=== PATIENT | female | born 1985 | race Caucasian/White ===

== ENCOUNTER → 2016-07-28 | Outpatient (CLI) | payer OTHER ==
[2016-07-28 18:27] LABS: ANION GAP 8 MEQ/L (8-16); BLOOD UREA NITROGEN 16 MG/DL (7-18); CALCIUM LEVEL 9.1 MG/DL (8.5-10.1); CARBON DIOXIDE LEVEL 28 MEQ/L (21-32); CHLORIDE LEVEL 104 MEQ/L (98-107); CREATININE FOR GFR 1.06 MG/DL (0.55-1.02); GLOMERULAR FILTRATION RATE > 60.0 (>60); GLUCOSE, FASTING 122 MG/DL (70-105); POTASSIUM SERUM 3.8 MEQ/L (3.5-5.1); SODIUM LEVEL 140 MEQ/L (136-145)
== END ==
LOC: M WUC 13:33
PROVIDERS: ATTEND Family Medicine
DX: M54.5 Low back pain (principal)

== ENCOUNTER 2017-03-18 05:54 | Day surgery (SDC) | payer OTHER ==
[~2017-03-18] VITALS: Ht 177.8 cm; Wt 75.7 kg
[~2017-03-18 05:54] MED LIST: CONTRACEPTIVE PO
[2017-03-18] MEDS ORDERED: LIDOCAINE 1% MDV 20ML VIAL SC ONE (06:30)
[2017-03-18 06:37] LABS: CONTROL LINE UCG INT CTR LINE PRESENT
[2017-03-18] MEDS ORDERED: LR 1,000 ML IV ONE (06:45)
[2017-03-18] MEDS ORDERED: LR 1,000 ML IV SCH ×3 (06:45→09:00)
[2017-03-18] MEDS ORDERED: CYCL10TA (06:51)
[2017-03-18] MEDS ORDERED: SCOPOLAMINE 1.5 MG TRANSDERMAL As Ordered ONE (07:21)
[2017-03-18] MEDS ORDERED: SCOPOLAMINE 1.5 MG TRANSDERMAL TOP ONE (08:00)
[2017-03-18] MEDS ORDERED: MIDAZOLAM INJ 2 MG/2 ML VIAL (J2250) As Ordered ONE (08:04)
[2017-03-18] MEDS ORDERED: METOCLOPRAMIDE INJ 10MG/2ML VIAL (J2765) As Ordered ONE (08:04)
[2017-03-18] MEDS ORDERED: dexameTHASONE 4 MG/ML 1ML VIAL (J1100) As Ordered ONE (08:04)
[2017-03-18] MEDS ORDERED: fentaNYL 100 MCG/2 ML INJECTION (J3010) As Ordered ONE (08:04)
[2017-03-18] MEDS ORDERED: LIDOCAINE 2% INJ 100 MG/5 ML SDV (FOR ANES.) As Ordered ONE (08:04)
[2017-03-18] MEDS ORDERED: PROPOFOL 500 MG/50 ML VIAL As Ordered ONE (08:04)
[2017-03-18] MEDS ORDERED: NEOSTIGMINE 1MG/ML 5 ML SYRINGE (J2710) As Ordered ONE (08:15)
[2017-03-18] MEDS ORDERED: GLYCOPYRROLATE INJ 0.2 MG/ML 2 ML VIAL As Ordered ONE (08:15)
[2017-03-18] MEDS ORDERED: ONDANSETRON 4MG/2ML VIAL (J2405) As Ordered ONE (08:30)
[2017-03-18] MEDS ORDERED: KETOROLAC 60 MG/2 ML VIAL (J1885) As Ordered ONE (08:30)
[2017-03-18] MEDS ORDERED: MEPERIDINE INJ 25 MG/ML VIAL (J2175) As Ordered ONE (08:57)
[2017-03-18] MEDS ORDERED: HYDROmorphone HCL 2 MG/ML 1ML VIAL (J1170) As Ordered ONE (09:00)
[2017-03-18] MEDS ORDERED: NORCO, ANEXSIA 5/325MG TABLET (HYDROcodone/ACETAMINOPHEN) PO PRN (09:00)
[2017-03-18] MEDS ORDERED: fentaNYL 100 MCG/2 ML INJECTION (J3010) IV PRN (09:00)
[2017-03-18] MEDS ORDERED: ONDANSETRON 4MG/2ML VIAL (J2405) IV PRN (09:00)
[2017-03-18] MEDS ORDERED: MEPERIDINE INJ 25 MG/ML VIAL (J2175) IV PRN (09:00)
[2017-03-18] MEDS ORDERED: PERCOCET 5MG/325MG TAB PO PRN (09:00)
[2017-03-18 10:34] VITALS: BP 116/58
[2017-03-18] MEDS ORDERED: IBUPROFEN 600 MG TAB PO PRN (14:30)
--- NOTE | 2017-03-19 10:53 | RO ---
DATE OF PROCEDURE: 03/18/2017 PREOPERATIVE DIAGNOSIS/INDICATION FOR SURGERY: Desire for permanent sterilization. POSTOPERATIVE DIAGNOSIS: Desire for permanent sterilization. PROCEDURE: Laparoscopic bilateral tubal ligation. SURGEON: Tg Johnson MD MICROFILM MOUNTER: ANESTHESIA: General endotracheal anesthesia. BRIEF DESCRIPTION OF PROCEDURE AND FINDINGS: Eneida was brought to the operating room where sufficient general endotracheal anesthesia was induced. She was prepped, draped and positioned in the usual sterile fashion. The bladder was emptied. The cervix grasped with a single-tooth tenaculum. This uterus would be accessible from below should that become necessary in the future. The uterus was sounded to 8 cm. Uterine manipulator placed, and then attention was turned to the abdomen. A transverse semilunar incision was made at the umbilicus and sharp and blunt dissection were continued to the level of the rectus fascia, which was transversely incised, secured with #0 Vicryl retention sutures and the peritoneum visualized. The Anna cannula was then placed into the peritoneal cavity under direct visualization and CO2 insufflation then begun. After adequate CO2 insufflation, the peritoneal cavity was visualized laparoscopically and normal shiny peritoneal surfaces were noted throughout. There was no excrescence, ascites, nor exudate. There were no masses. No lesions. Upper abdomen was normal appearance. There was no significant scarring. Lower abdomen was normal in appearance. There was no significant scarring. Tubes, ovaries and uterus were normal in appearance as noted in the operative report. We then used the bipolar cautery with the Kleppinger to cauterize the tubes in four separate locations along the length of the tube. In fact, on the right side we did five as she had a longer tube there. We were careful to avoid injury to the bowel. We were readily able to cauterize the tube fully, and photographs were taken to document this. Having completed the tubal ligation, the instruments were removed. The CO2 allowed to escape and the wound at the umbilicus closed with the #0 Vicryl retention sutures at the fascial level and then with #3-0 Vicryl at the skin in a subcuticular stitch. Dry sterile dressing was then applied. Estimated blood loss for the procedure was about 5 mL. Fluid replacement was crystalloid. Complications: None. Condition and Disposition: Eneida tolerated the procedure well and was recovering in the recovery room in good condition.
== END 2017-03-18 11:01 | disposition home or self-care (01) ==
LOC: M SDC 05:54
PROVIDERS: ATTEND Obstetrics & Gynecology
DX: Z30.2 Encounter for sterilization (principal); Z88.0 Allergy status to penicillin; Z91.013 Allergy to seafood; Z79.3 Long term (current) use of hormonal contraceptives
CPT/HCPCS: 58670; 84703; J1100; J1170; J1885; J2175; J2250; J2405; J2710; J2765; J3010